=== PATIENT | female | born 1960 | race American Indian/Alaskan Native ===

== ENCOUNTER 2019-04-04 07:15 | Day surgery (SDC) | payer OTHER ==
[2019-04-03 09:02] VITALS: BMI 28.6
[2019-04-04] MEDS ORDERED: oxyCODONE HCL 5 MG TABLET PO PRN ×2 (07:23)
[2019-04-04] MEDS ORDERED: ONDANSETRON 4 MG/2 ML VIAL IVPUSH PRN (07:23)
[2019-04-04] MEDS ORDERED: LACTATED RINGERS SOLUTION 1,000 ML IV SCH (07:30)
[2019-04-04] MEDS ORDERED: ROPIVACAINE HCL 0.5% 30ML VIAL ONE (07:38)
[2019-04-04] MEDS ORDERED: MIDAZOLAM HCL 2 MG/2 ML SINGLE DOSE VIAL ONE ×2 (07:39)
--- NOTE | 2019-04-04 08:54 | HP ---
Satellite [facility] - Chief Complaint Chief Complaint: right shoulder pain - Past Medical History Allergies/Adverse Reactions: Allergies Allergy/AdvReac Type Severity Reaction Status Date / Time kiwi Allergy Severe Hives Verified 04/04/19 07:43 peanut Allergy Severe Hives Verified 04/04/19 07:43 pineapple Allergy Severe Rash Verified 04/04/19 07:43 pear Allergy Intermediate Hives Verified 04/04/19 07:43 latex AdvReac Severe Hives Verified 04/04/19 07:43 FRUITS Allergy Intermediate Hives Uncoded 04/04/19 07:43 Cardiovascular: Yes: HTN, Hyperlipdemia Endocrine: Yes: Diabetes Mellitus - Current Medications Current Medications: Home Medications Medication Instructions Recorded Atorvastatin Ca [Lipitor] 10 mg PO HS 05/02/12 Glyburide/Metformin HCl 1 each PO HS 10/15/15 [Glucovance 5-500 mg Tablet] Sitagliptin Phos/Metformin HCl 1 each PO HS 10/15/15 [Janumet 50-500 mg Tablet] Canagliflozin [Invokana] 100 mg PO DAILY 04/03/19 Glyburide/Metformin HCl 2 each PO DAILY 04/03/19 [Glyburide-Metformin 5-500 mg] Losartan Potassium 25 mg PO HS 04/03/19 Oxycodone HCl/Acetaminophen 1 - 2 tab PO Q6H #30 tab MDD 6 04/04/19 [Percocet 5-325 mg Tablet] Satellite Physical Exam - Physical Examination Vital Signs: Vital Signs Period Temp Pulse Resp BP Sys/Rouse Pulse Ox Last 24 Hr 98.5 F 66 16 157/82 99 General Appearance: Well Nourished, Well Developed, Alert & Oriented x3 ENT: Clear Lung: Normal air movement Heart: Regular rate & rhythm Extremities: Other (right shoulder- + ttp, decr rom ,+ neer, + regan, + empty can, nvi, MRI + rct) Neurological: Intact, Alert, Oriented Satellite Impression/Plan - Impression/Plan Impression: right shoulder rct Operative Procedure: right shoulder arthroscopy with RCR, SAD Date to be Performed: 04/04/19
[2019-04-04] MEDS ORDERED: PROPOFOL 20 ML ONE (09:01)
[2019-04-04] MEDS ORDERED: ceFAZolin SODIUM 1 GM VIAL IVPB ONE (09:14)
--- NOTE | 2019-04-04 10:22 | OP ---
Operative Note - Note: Operative Date: 04/04/19 ([facility]) Pre-Operative Diagnosis: right shoulder rct Operation: right shoulder arthroscopy with RCR, SAD Implants: arthrex speedbridge, 1 swivelock Post-Operative Diagnosis: Same as Pre-op Surgeon: Javi Meek Quality Liaison: Will Hare Anesthesiologist/MANAGER SIMULATION: Chiquita Garcia Anesthesia: General, Local Specimens Removed: shavings Estimated Blood Loss (mls): 5 Operative Report Dictated: Yes
[2019-04-04] MEDS ORDERED: ACETAMINOPHEN 1000 MG/100 ML VIAL (NON FORMULARY) IVPB ONE (11:07)
[2019-04-04 11:20] VITALS: TEMP 97.8
--- NOTE | 2019-04-04 12:48 | OP ---
DATE OF OPERATION: 04/04/2019 PREOPERATIVE DIAGNOSIS: Right rotator cuff tear. POSTOPERATIVE DIAGNOSIS: Right rotator cuff tear. PROCEDURE: Arthroscopy, right shoulder, with subacromial decompression, and arthroscopic right rotator cuff repair. SURGICAL ATTENDING: Javi Meek MD ACID SUPERVISOR: CHA Martines ANESTHESIA: Regional and general. CLOSURE: A SpeedBridge and SwiveLock anchor as well for rotator cuff, 3-0 nylon for skin. ESTIMATED BLOOD LOSS: Negligible. COMPLICATIONS: None. CONDITION: To recovery room in stable condition. DESCRIPTION OF OPERATIVE PROCEDURE: Patient was taken to the operating room on April 04, 2019. General and regional anesthesia were administered by the anesthesiologist. IV Kefzol was administered prophylactically prior to the case. Patient was placed in the beach-chair position with all prominences well padded. The posterior portal was made 2 fingerbreadths below the acromion first with a 15 blade followed by a blunt trocar. A circumferential examination of the glenohumeral joint revealed the following: Intact glenoid and humeral head articular cartilage, intact labrum circumferentially, intact biceps and biceps anchor, intact subscapularis to its insertion. Looking superior, there was a large crescent rotator cuff tear that was seen from underneath. No loose bodies were encountered in the shoulder. Fluid was drained, the trocar was removed. The posterior trocar was redirected in the subacromial space. An accessory lateral and anterior portal was then made using 15 blade followed by a blunt trocar. A bursectomy was performed using ArthroCare device. Coracoacromial ligament was identified and detached off the anterior acromion and was further debrided. An acromioplasty was performed on the undersurface of the acromion raising the roof to a good level. Soft tissue encountered adherent to the rotator cuff was debrided using the shaver and the ArthroCare device. The greater tuberosity bed was debrided and also burdened to have some bleeding bone. Two medial row anchors at the articular margins, one anterior and one posterior, were malletted into place. They had preloaded suture tape sutures, which were passed in a fanned-out position throughout the rotator cuff. Two lateral row anchors were then used to fixate the rotator cuff to the greater tuberosity, achieving excellent apposition. There was a slight persistent opening anteriorly that was closed using a horizontal mattress sutures passed with the scorpion needle through an accessory SwiveLock anchor more laterally and distally. A [id number] portion of the rotator cuff was also repaired using a suture and knot pushers closing down the gap and decreasing tension in the repair, as well. The shoulder was taken through a range of motion and found to have excellent clearance and good stability of the rotator cuff repair. Patient awakened from anesthesia and transferred to recovery in stable condition. No complications. Estimated blood loss negligible. Patient was placed in a shoulder immobilizer and transferred to the recovery room in stable condition. JAVI MEEK M.D. [id number]
[2019-04-04 13:38] VITALS: BP 115/80; PULSE 68
--- NOTE | 2019-04-06 17:18 | PATH ---
Surgical Pathology Report Patient Name: MARGIE PELLETIER [facility]. Rec. #: [id number] /Age/Gender: 1960 (Age: 59) / F Account: [id number] Location: [facility] SURGICAL Taken: 04/04/2019 Received: 04/04/2019 Reported: 04/06/2019 Physicians: Javi Meek M.D. Specimen(s) Received RIGHT SHOULDER SHAVINGS Clinical History Right shoulder tear Final Diagnosis SHOULDER SHAVINGS, RIGHT, ARTHROSCOPY, SUBACROMIAL DECOMPRESSION, ROTATOR CUFF REPAIR: FRAGMENTS OF BENIGN CARTILAGE, DENSE FIBROCONNECTIVE TISSUE, ADIPOSE TISSUE, BONE, AND SKELETAL MUSCLE. Electronically Signed Rox Hood M.D. Gross Description Received in formalin, labeled "right shoulder shavings," is a 4.3 x 3.2 x 0.2 cm. aggregate of acevedo-yellow soft tissue fragments. A parts representative portion is submitted in one cassette. /04/04/201904/04/2019
== END 2019-04-04 14:00 | disposition home or self-care (01) ==
LOC: JASU-SURG 07:15
PROVIDERS: ATTEND Orthopaedic Surgery
PROC: 0RNJ4ZZ Release Right Shoulder Joint, Percutaneous Endoscopic Approach (ICD-10-PCS; principal; 2019-04-04 09:00)
PROC: 0LQ14ZZ Repair Right Shoulder Tendon, Percutaneous Endoscopic Approach (ICD-10-PCS; 2019-04-04 09:00)
DX: M75.101 Unspecified rotator cuff tear or rupture of right shoulder, not specified as traumatic (principal); E11.9 Type 2 diabetes mellitus without complications; Z79.84 Long term (current) use of oral hypoglycemic drugs
CPT/HCPCS: 82962; 88304-TC; 94760; J0131

== ENCOUNTER 2023-10-19 04:13 | Day surgery (SDC) | payer OTHER ==
[2023-10-12 15:28] VITALS: BMI 27.4
[2023-10-19 09:46] VITALS: TEMP 97.7
[2023-10-19 10:08] VITALS: RESP 18
[2023-10-19 11:04] VITALS: BP 126/64; PULSE 59
== END 2023-10-19 10:35 | disposition home or self-care (01) ==
LOC: JASU-ENDO 04:13
PROVIDERS: ATTEND Internal Medicine Gastroenterology
PROC: 0DB98ZX Excision of Duodenum, Via Natural or Artificial Opening Endoscopic, Diagnostic (ICD-10-PCS; 2023-10-19)
PROC: 0DB78ZX Excision of Stomach, Pylorus, Via Natural or Artificial Opening Endoscopic, Diagnostic (ICD-10-PCS; 2023-10-19)
PROC: 0DB68ZX Excision of Stomach, Via Natural or Artificial Opening Endoscopic, Diagnostic (ICD-10-PCS; 2023-10-19)
PROC: 0DJD8ZZ Inspection of Lower Intestinal Tract, Via Natural or Artificial Opening Endoscopic (ICD-10-PCS; principal; 2023-10-19 09:00)
DX: Z12.11 Encounter for screening for malignant neoplasm of colon (principal); K21.00 Gastro-esophageal reflux disease with esophagitis, without bleeding; K22.10 Ulcer of esophagus without bleeding; K29.70 Gastritis, unspecified, without bleeding

== ENCOUNTER 2024-04-11 08:34 | Day surgery (SDC) | payer OTHER ==
[2024-04-03 11:11] VITALS: BMI 26.1
[2024-04-11] MEDS ORDERED: LIDOCAINE 1% P/F 10 MG/ML VIAL ONE (08:45)
[2024-04-11] MEDS ORDERED: CARBACHOL 0.01% INTRA-OCULAR 1.5 ML VIAL ONE (08:45)
[2024-04-11] MEDS ORDERED: NEO/POLYMYX B SULF/DEXAMETH OPHTHALMIC 5ML BOTTLE ONE (08:45)
[2024-04-11] MEDS ORDERED: BSS (NA/CA/MG/K) BALANCED SALT SOLUTION OPHTH SOLN 15 ML BOTTLE ONE (08:45)
[2024-04-11] MEDS ORDERED: TETRACAINE 0.5% OPHTH SOLN 2 ML BOTTLE ONE (08:45)
[2024-04-11] MEDS: TROPICAMIDE 1% OPHTH SOLN 15 ML BOTTLE ONE (09:05)
[2024-04-11] MEDS: CIPROFLOXACIN 0.3% EYE DROPS 5 ML BOTTLE ONE (09:05)
[2024-04-11] MEDS: CYCLOPENTOLATE 2% OPHTH SOLN 2 ML BOTTLE ONE (09:05)
[2024-04-11] MEDS: PHENYLEPHRINE 2.5% OPTHALMIC DROP 2ML BOTTLE ONE (09:05)
[2024-04-11] MEDS ORDERED: MIDAZOLAM HCL 2 MG/2 ML SINGLE DOSE VIAL ONE (10:12)
[2024-04-11 11:06] VITALS: PULSE 61; RESP 18; TEMP 97.1
[2024-04-11 11:24] VITALS: BP 122/70
== END 2024-04-11 11:24 | disposition home or self-care (01) ==
LOC: FASU 08:34
PROVIDERS: ATTEND Ophthalmology
PROC: 08RK3JZ Replacement of Left Lens with Synthetic Substitute, Percutaneous Approach (ICD-10-PCS; principal; 2024-04-11 10:39)
DX: H26.8 Other specified cataract (principal)
CPT/HCPCS: 66984; V2632; 82962